=== PATIENT | male | born 1995 | race Two or more races ===

== ENCOUNTER 2024-04-08 15:25 | Emergency (ER) | payer OTHER, MEDICAID ==
[~2024-04-08] VITALS: Ht 170.2 cm; Wt 65.1 kg
[2024-04-08 16:20] VITALS: BP 144/96; PULSE 83; RESP 16; TEMP 99; O2SAT 98
[2024-04-08] MEDS ORDERED: CYCL-837 PO (17:13)
[2024-04-08] MEDS ORDERED: IBUP1TAB5 PO (17:13)
== END 2024-04-08 17:17 | disposition home or self-care (01) ==
LOC: ER 15:25
DX: M25.532 Pain in left wrist (principal); V89.2XXA Person injured in unspecified motor-vehicle accident, traffic, initial encounter; Y93.I9 Activity, other involving external motion; Y92.488 Other paved roadways as the place of occurrence of the external cause; Y99.8 Other external cause status
CPT/HCPCS: 73110